=== PATIENT | female | born 1985 | race Caucasian/White ===

== ENCOUNTER 2021-05-04 18:48 | Emergency (ER) | payer MEDICAID ==
--- NOTE | 2021-05-04 19:48 | NUR ---
CALLED TO BE TRIAGE , NO RESPONSE
--- NOTE | 2021-05-04 19:48 | NUR ---
PATIENT LEFT WITHOUT BEING SEEN BY DR. CLEMENS. NO FURTHER CARE PROVIDED FOR PATIENT.
--- NOTE | 2021-05-04 19:58 | NUR ---
CALLED FOR THE SECOND TIME NO RESPONSE
--- NOTE | 2021-05-04 20:08 | NUR ---
CALLED FOR THE THIRD TIME ,NO RESPONSE
== END 2021-05-04 19:48 | disposition left against medical advice (07) ==
LOC: MED 18:48
DX: R51.9 Headache, unspecified (principal); Z53.21 Procedure and treatment not carried out due to patient leaving prior to being seen by health care provider